=== PATIENT | female | born 1975 | race Caucasian/White ===

== ENCOUNTER 2019-01-20 18:27 | Emergency (ER) | payer MEDICAID ==
[~2019-01-20] VITALS: Ht 167.6 cm; Wt 90.9 kg
[2019-01-20 18:55] VITALS: Ht 167.6 cm; Wt 90.9 kg
[2019-01-20] MEDS ORDERED: CLEOCIN HCL300 MG PO (20:54)
[2019-01-20] MEDS ORDERED: TORADOL10 MG PO (20:54)
[2019-01-20 21:17] VITALS: BP 123/78
[2019-01-21] MEDS ORDERED: HYDROCODON-ACE1 EAC2 PO (20:27)
[2019-01-21] MEDS ORDERED: PENICILLIN V P500 MG PO (20:27)
== END 2019-01-20 21:18 | disposition home or self-care (01) ==
LOC: D.ER 18:27
DX: K08.89 Other specified disorders of teeth and supporting structures (principal)

== ENCOUNTER 2019-01-21 19:25 | Emergency (ER) | payer MEDICAID ==
[~2019-01-21] VITALS: Ht 167.6 cm; Wt 92.3 kg
[~2019-01-21 19:25] MED LIST: CLEOCIN HCL300 MG PO; TORADOL10 MG PO
[2019-01-21 19:32] VITALS: Ht 167.6 cm; Wt 92.3 kg
[2019-01-21] MEDS ORDERED: HYDROCODON-ACE1 EAC2 PO (20:27)
[2019-01-21] MEDS ORDERED: PENICILLIN V P500 MG PO (20:27)
[2019-01-21 21:06] VITALS: BP 171/103
== END 2019-01-21 21:06 | disposition home or self-care (01) ==
LOC: D.ER 19:25
DX: K04.7 Periapical abscess without sinus (principal); S02.5XXA Fracture of tooth (traumatic), initial encounter for closed fracture; X58.XXXA Exposure to other specified factors, initial encounter; Y93.9 Activity, unspecified